=== PATIENT | female | born 1965 ===

== ENCOUNTER 2020-04-19 07:15 | Outpatient (CLI) | payer OTHER, SELFPAY | END 2020-04-19 23:59 | disposition home or self-care (01) | LOC: MLB 07:15 → EDSTATUS 04-27 09:10 | PROVIDERS: ATTEND Internal Medicine Gastroenterology | DX: Z01.812 Encounter for preprocedural laboratory examination (principal); Z20.828 Contact with and (suspected) exposure to other viral communicable diseases | CPT/HCPCS: U0003-CS ==

== ENCOUNTER 2022-09-05 05:51 | Day surgery (SDC) | payer OTHER ==
[~2022-09-05] VITALS: Ht 158.8 cm; Wt 81.6 kg
[2022-09-05] MEDS ORDERED: MIDAZOLAM 2 MG/2 ML VIAL ONE ×2 (07:16)
[2022-09-05] MEDS ORDERED: fentaNYL citrate 0.05 MG/ML VIAL ONE (07:16)
[2022-09-05] MEDS ORDERED: LIDOCAINE 2% 100 MG/5 ML UJET TP ONE (07:17)
[2022-09-05] MEDS ORDERED: MIDAZOLAM 2 MG/2 ML VIAL IVP ONE (09:05)
[2022-09-05] MEDS ORDERED: fentaNYL citrate 0.05 MG/ML VIAL IVP ONE (09:05)
== END 2022-09-05 09:37 | disposition home or self-care (01) ==
LOC: MDS 05:51 → MMU 05:52 → MDS 09:37
PROVIDERS: ATTEND Internal Medicine Gastroenterology
DX: Z12.11 Encounter for screening for malignant neoplasm of colon (principal); K29.70 Gastritis, unspecified, without bleeding; K22.89 Other specified disease of esophagus; R93.3 Abnormal findings on diagnostic imaging of other parts of digestive tract; E78.5 Hyperlipidemia, unspecified; E11.9 Type 2 diabetes mellitus without complications; Z90.49 Acquired absence of other specified parts of digestive tract; Z79.82 Long term (current) use of aspirin; Z79.84 Long term (current) use of oral hypoglycemic drugs; Z79.899 Other long term (current) drug therapy; Z20.822 Contact with and (suspected) exposure to COVID-19
CPT/HCPCS: 36415; 43239; 45378; 86677; 87426; J2250; J3010